=== PATIENT | female | born 2000 | race African-American/Black ===

== ENCOUNTER → 2019-04-28 | Outpatient (CLI) | payer OTHER ==
--- NOTE | 2019-04-28 12:07 | WOMENS IMAGING REPORT ---
EXAM DESCRIPTION: U/S BREAST UNILAT LIMITED COMPLETED DATE/TIME: 04/28/2019 10:17 am REASON FOR STUDY: N63.0 UNSPECIFIED LUMP IN UNSPECIFIED BREAST, LEFT; N63.0 UNSPECIFIED LUMP IN UNSP ECIFIED BREAST, RIGHT N63.0 UNSPECIFIED LUMP IN UNSPECIFIED BREAST COMPARISON: None. TECHNIQUE: Real-time and static grayscale imaging performed of the right and left upper outer quadra nt breast targeted to the area of clinical concern. Selected color Doppler images recorded. LIMITATIONS: None. FINDINGS: MASS: No mass identified. Normal glandular tissue. OTHER: No cysts. No focal findings in the right upper outer quadrant and left upper outer quadrant b reast. IMPRESSION: No suspicious findings detected by ultrasound. BIRAD: Negative. RECOMMENDATION: RECOMMENDED FOLLOW-UP: Follow-up as clinically indicated. COMMENT: The [employer] ([employer]) has developed recommendations for screening MRI of the breasts in certain patient populations, to be used in conjunction with mammography. Breast MRI s urveillance may be appropriate for women with more than 20% lifetime risk of developing breast cancer as determined by genetic testing, significant family history of the disease, or history of mantle r adiation for Hodgkins Disease. [employer] Practice Guidelines 2008. TECHNICAL DOCUMENTATION: JOB ID: [id number] [employer]- All Rights Reserved Reading location - IP/workstation name: [email or web address]
== END ==
LOC: WI 09:40
PROVIDERS: ATTEND Physician Assistant
DX: N64.4 Mastodynia (principal)
CPT/HCPCS: 76642

== ENCOUNTER 2020-04-20 01:29 | Emergency (ER) | payer OTHER ==
[2020-04-20 03:07] VITALS: BP 143/93
--- NOTE | 2020-04-20 04:28 | ER Document Report ---
ED Respiratory Problem - General Chief Complaint: Chest Congestion Stated Complaint: COUGH,SORE THROAT Time Seen by Provider: 04/20/20 03:59 Primary Care Provider: QUINN KENT PA [Primary Care Provider] - Follow up in 3-5 days TRAVEL OUTSIDE OF THE [place] IN LAST 30 DAYS: No - HPI Notes: Patient is a 20-year-old female with no significant past medical history presents with sore throat and cough. Patient states she developed symptoms this evening. She feels like she lost her voice. Patient complains of cough that is productive. No chest pain or shortness of breath. She denies any ear pain. No fevers or chills. She is not known to have any positive Covid contacts. No abdominal pain, nausea, vomiting, or diarrhea. - Related Data Allergies/Adverse Reactions: No Known Allergies Allergy (Verified 04/20/20 03:19) Past Medical History - General Information source: Patient - Social History Smoking Status: Never Smoker Family History: Reviewed & Not Pertinent Past Surgical History: Reports: Hx Tonsillectomy Review of Systems - Review of Systems Notes: CONSTITUTIONAL: No fever, fatigue or weight loss. SKIN: No rash. HENT: No congestion, ear pain. Positive for sore throat. CARDIOVASCULAR: No chest pain or edema. RESPIRATORY: No shortness of breath, congestion, or wheezing. Positive for cough. GASTROINTESTINAL: No abdominal pain, nausea, vomiting, bloody stools or diarrhea. GENITOURINARY: No dysuria. MUSCULOSKELETAL: No joint pain or swelling. LYMPHATIC: No swollen glands. NEUROLOGIC: No seizures. No headache, focal weakness or sensory changes. HEMATOLOGIC: No unusual bruising or bleeding. PSYCHIATRIC: No depression or anxiety. Physical Exam - Vital signs Vitals: Temp Pulse Resp BP Pulse Ox 98.4 F 104 H 18 143/93 H 99 04/20/20 03:04 04/20/20 03:04 04/20/20 03:04 04/20/20 03:04 04/20/20 03:04 - General General appearance: Appears well In distress: None Notes: VITAL SIGNS: Within normal limits. GENERAL: No acute distress, non-toxic appearance. HEAD: Normal with no signs of head trauma. EYES: EOMI, conjunctiva normal, no discharge. EARS: Hearing grossly intact. NOSE: Normal. THROAT: Oropharynx is normal. No exudate. NECK: Normal range of motion, no tenderness, supple CHEST: Clear breath sounds bilaterally. No wheezes, rales, or rhonchi. CARDIAC: Regular rate and rhythm. VASCULAR: No Edema. ABDOMEN: Normal and soft with no tenderness, no masses or pulsatile masses.. MUSCULOSKELETAL: Good range of motion of all major joints. Extremities without clubbing, cyanosis or edema. NEUROLOGICAL: Alert and oriented x 3. No focal sensory or strength deficits. Speech normal. Follows commands appropriately. PSYCHIATRIC: Normal Affect, judgement and mood. SKIN: Normal appearance with no rashes or lesions. Course - Re-evaluation Re-evalutation: 04/20/20 07:18 Patient appears well on exam. She is resting comfortably. Her strep and influenza swab were negative. I did order prednisone to help with throat pain and inflammation. Her oropharynx has no exudates and appears normal. Patient was Covid tested. She was told that she needs to self isolate until she is called with a negative result. She is to return if symptoms worsen. Patient is very agreeable to the plan. I instructed her on Tylenol and ibuprofen. - Vital Signs Vital signs: Temp Pulse Resp BP Pulse Ox 98.8 F 104 H 18 143/93 H 99 04/20/20 06:01 04/20/20 03:04 04/20/20 03:04 04/20/20 03:04 04/20/20 03:04 - Laboratory Results Critical Laboratory Results Reviewed: No Critical Results - Radiology Results Critical Radiology Results Reviewed: No Critical Results Discharge - Discharge Clinical Impression: Sore throat, Cough, Suspected COVID-19 virus infection Condition: Stable Disposition: HOME, SELF-CARE Instructions: COVID-19 Guidance for Persons Under Investigation, Sore Throat ([facility]) Additional Instructions: Your work-up today is reassuring. Please make sure you are staying hydrated. Use Tylenol and ibuprofen for pain. Return to the ER immediately for any worsening symptoms. You have been tested for COVID-19. Please self isolate until you are called with a negative result. Referrals: QUINN KENT PA [Primary Care Provider] - Follow up in 3-5 days
[2020-04-20 05:35] LABS: A TYPE INFLUENZA AG NEGATIVE (NEGATIVE); B INFLUENZA AG NEGATIVE (NEGATIVE)
[2020-04-20] MEDS ORDERED: PREDNISONE 20 MG TABLET PO ONE (05:46)
--- NOTE | 2020-04-20 05:57 | RADIOLOGY REPORT (SQ) ---
EXAM DESCRIPTION: X-ray single view chest. CLINICAL HISTORY: 20 years Female, cough COMPARISON: None. TECHNIQUE: Single portable x-ray view of the chest performed on 04/20/2020 at 5:24 AM FINDINGS: The lungs are well expanded and are clear. There is no evidence of a pneumothorax. The cardiac silhouette is normal in size and configuration. The mediastinal contours are normal. No acute osseous abnormality is identified. No acute soft tissue abnormalities are seen. Lines and tubes: None. IMPRESSION: No evidence of acute intrathoracic disease.
== END 2020-04-20 07:10 | disposition home or self-care (01) ==
LOC: ER 01:29
DX: J02.9 Acute pharyngitis, unspecified (principal); R68.89 Other general symptoms and signs; R05 Cough; Z20.822 Contact with and (suspected) exposure to COVID-19
CPT/HCPCS: 99284; 87070; 87880; 87635; 81025; 87804; 71045; J7512; C9803